=== PATIENT | male | born 2000 | race Hispanic/Latino ===

== ENCOUNTER 2021-08-01 15:10 | Emergency (ER) | payer OTHER ==
--- NOTE | 2021-08-01 16:54 | RAD REPORT ---
EXAM DESCRIPTION: RAD - Ankle Right 3 View - 08/01/2021 4:28 pm CLINICAL HISTORY: Pain COMPARISON: No comparisons FINDINGS/IMPRESSION: No acute fracture. No malalignment. No significant focal degenerative changes.
--- NOTE | 2021-08-01 17:42 | ER ---
Nurse's Notes [facility] Name: Aman Buchanan Age: 20 yrs Sex: Male : 2000 Arrival Date: 08/01/2021 Time: 15:12 Bed Waiting Private MD: Diagnosis: Sprain of ankle-right Presentation: 08/01 15:54 Chief complaint: Patient states: right ankle sprain. Coronavirus screen: At this time, iw the client does not indicate any symptoms associated with coronavirus-19. Ebola Screen: Patient negative for fever greater than or equal to 101.5 degrees Fahrenheit, and additional compatible Ebola Virus Disease symptoms Patient denies exposure to infectious person. Patient denies travel to an Ebola-affected area in the 21 days before illness onset. No symptoms or risks identified at this time. Initial Sepsis Screen: Does the patient meet any 2 criteria? No. Patient's initial sepsis screen is negative. Does the patient have a suspected source of infection? No. Patient's initial sepsis screen is negative. Risk Assessment: Do you want to hurt yourself or someone else? Patient reports no desire to harm self or others. Onset of symptoms was August 01, 2021. 15:54 Method Of Arrival: Wheelchair iw 15:54 Acuity: RYAN 4 iw Historical: - Allergies: 15:54 No Known Allergies; ED Course: 15:12 Patient arrived in ED. ja2 15:16 Thong Hunt PA is PHCP. cp 15:16 Sloan Yeh MD is Attending Physician. cp 15:54 Triage completed. iw 16:29 XRAY Ankle RIGHT 3 view In Process Unspecified. EDMS 17:41 Jaime Villasenor MD is Referral Physician. cp Administered Medications: No medications were administered Outcome: 17:42 Discharge ordered by . cp 18:21 Patient left the ED. Signatures: Dispatcher [employer] EDMS Jennifer Bailey, BROOKE RN iw Thong Hunt PA PA cp Alexander, Jessica ja2
--- NOTE | 2021-08-01 17:43 | EDPHYS ---
Physician Documentation [facility] Name: Aman Buchanan Age: 20 yrs Sex: Male : 2000 Arrival Date: 08/01/2021 Time: 15:12 Bed Waiting Private MD: ED Physician Sloan Yeh HPI: 08/01 15:45 This 20 yrs old Male presents to ER via Unassigned with complaints of Ankle cp Injury. 15:45 The patient presents with an injury, pain, that is acute. The complaints affect the cp right ankle. 15:45 Onset: The symptoms/episode began/occurred today. cp Historical: - Allergies: 15:54 No Known Allergies; iw ROS: 15:55 Constitutional: Negative for body aches, chills, fever, poor PO intake. cp 15:55 Neck: Negative for pain with movement, pain at rest, stiffness. cp 15:55 Cardiovascular: Negative for chest pain. 15:55 Respiratory: Negative for cough, shortness of breath. 15:55 Abdomen/GI: Negative for abdominal pain, nausea, vomiting, and diarrhea. 15:55 Back: Negative for pain at rest, pain with movement. 15:55 MS/extremity: Positive for pain, swelling, tenderness, of the right lateral ankle. 15:55 Neuro: Negative for altered mental status, headache, weakness. 15:55 All other systems are negative. Exam: 16:00 Constitutional: The patient appears in no acute distress, alert, awake, well developed, cp well nourished. 16:00 Head/Face: Normocephalic, atraumatic. cp 16:00 Neck: ROM/movement: is normal, is supple, without pain, no range of motions limitations. 16:00 Chest/axilla: Inspection: normal. 16:00 Respiratory: the patient does not display signs of respiratory distress, Respirations: normal, no use of accessory muscles, no retractions, labored breathing, is not present. 16:00 Abdomen/GI: Exam negative for discomfort, distension, guarding, Inspection: abdomen appears normal. 16:00 Back: pain, is absent, ROM is normal. 16:00 Musculoskeletal/extremity: Extremities: grossly normal except: noted in the right lateral ankle: pain, swelling, tenderness, There is no evidence of decreased ROM, deformity, ROM: limited passive range of motion due to pain, in the right ankle, Pulses: noted to be 2+ in the right dorsalis pedis artery, Weight bearing: able to fully bear weight, No pain to palpation noted proximal right fibula and/or base of right fifth metatarsal. Achilles tendon palpated and intact. MDM: 17:00 Differential diagnosis: fracture, sprain, Achilles tendon injury, foot fracture. cp 17:41 Data reviewed: vital signs, nurses notes, radiologic studies, plain films. Test cp interpretation: by ED physician or midlevel provider: plain radiologic studies. 17:42 Patient medically screened. cp 08/01 15:45 Order name: XRAY Ankle RIGHT 3 view; Complete Time: 17:40 cp 08/01 17:41 Order name: Floyd wrap-joint cp 08/01 17:41 Order name: Aircast Ankle Splint cp 08/01 17:41 Order name: Crutches cp Administered Medications: No medications were administered Disposition Summary: 08/01/21 17:42 Discharge Ordered Location: Home cp Problem: new cp Symptoms: have improved cp Condition: Stable cp Diagnosis - Sprain of ankle - right cp Followup: cp - With: Jaime Villasenor MD - When: 1 week - Reason: Recheck today's complaints Discharge Instructions: - Discharge Summary Sheet cp - Ankle Sprain cp - RICE Therapy for Routine Care of Injuries cp Forms: - Medication Reconciliation Form cp - Thank You Letter cp - Antibiotic Education cp - Prescription Opioid Use cp Prescriptions: - Ibuprofen 800 mg Oral Tablet - take 1 tablet by ORAL route every 8 hours As needed take with food; 30 tablet; cp Refills: 0, Product Selection Permitted Addendum: 08/03/2021 23:54 Co-signature as Attending Physician, Sloan Yeh MD. r n Signatures: Dispatcher [employer] Jennifer Alexander, Sloan Arthur RN, MD MD rn Page, Corey, SHIRA PA cp
== END 2021-08-01 18:21 | disposition home or self-care (01) ==
LOC: ER 15:10
DX: S93.401A Sprain of unspecified ligament of right ankle, initial encounter (principal)
CPT/HCPCS: 99282